=== PATIENT | female | born 1980 | race Caucasian/White ===

== ENCOUNTER 2018-07-17 15:59 | Inpatient (IN) | payer MEDICAID ==
[~2018-07-17] VITALS: Ht 154.9 cm; Wt 61.3 kg
[2018-07-17] MEDS ORDERED: FERR256T PO (16:32)
[2018-07-17] MEDS ORDERED: PNV1TABL12 PO (16:32)
[2018-07-17] MEDS ORDERED: CALC600T5 PO (16:32)
[2018-07-17 16:33] VITALS: Ht 154.9 cm; Wt 61.3 kg
[2018-07-17] MEDS ORDERED: LACTATED RINGER'S 1,000 ML IV SCH (17:30)
[2018-07-17] MEDS ORDERED: ACETAMINOPHEN 325 MG TAB PO PRN (18:30)
[2018-07-17] MEDS: LACTATED RINGER'S 1,000 ML IV SCH (20:31)
[2018-07-18] MEDS: LACTATED RINGER'S 1,000 ML IV SCH ×2 (03:27→10:22)
[2018-07-18] MEDS ORDERED: PRENATAL VITAMIN PO SCH (09:00)
[2018-07-18] MEDS ORDERED: FERROUS SULFATE (EC) 325 MG TAB PO SCH (09:00)
--- NOTE | 2018-07-18 17:43 | PREOPHP ---
DATE OF ADMISSION: 07/17/2018 HISTORY OF PRESENT ILLNESS: This is a 37-year-old lady, 4, para 3 with 3 C-sections, EDC , at 35 and 6/7 weeks , admitted for extended observation. The patient was at Dr. Tasneem turner's office for nonstress test and the baby was not reactive, so Dr. Chirinos advised the patient to hav e extended observation. The patient feels the baby moving and [facility] and the care was uneventful. PAST PERSONAL HISTORY: No history of diabetes, TB, asthma. ALLERGIES: NO ALLERGIES. SOCIAL HISTORY: The patient does not smoke. She does not drink. MEDICATIONS: She does not take any drugs except her: 1. Iron. 2. Vitamins. GYNECOLOGIC HISTORY: She had menarche at the age of 13, every 28 days interval, 3 to 4 days duration and moderate in amount. FAMILY HISTORY: Noncontributory. OBSTETRIC HISTORY: She is 4, para 3. First delivery was in 2003, second in 2010, third in , all by C-sections. REVIEW OF SYSTEMS: CARDIOVASCULAR: No chest pains. RESPIRATORY: No cough. GASTROINTESTINAL: No diarrhea, no vomiting. GENITOURINARY: No dysuria. PHYSICAL EXAMINATION: GENERAL: Reveals a conscious, coherent lady and in no acute distress. VITAL SIGNS: Blood pressure 120/80, pulse rate 80 per minute, respirations 16 per minute. BREASTS, HEART AND LUNGS: Within normal limits. ABDOMEN: Soft. Fundic height is 35 cm. heart tones 140 per minute. PELVIC: Revealed the cervix to be closed. EXTREMITIES: No pedal edema. ADMITTING DIAGNOSES: A 35 and 6/7 weeks' intrauterine , rule out labor. The patient was no keira to have some contractions. She was given IV hydration and was given on and off oxygen. The osmin ent was planned to be observed overnight. The patient, as mentioned, was ordered to have hydration a nd to observe the baby closely with continuous monitoring. Dictated By: ANDREAS NEUMANN/NTS Conf#: [id number] DID#: [id number]
--- NOTE | 2018-07-18 20:33 | DS ---
DATE OF ADMISSION: 07/17/2018 DATE OF DISCHARGE: 07/18/2018 This is a 37-year-old lady, 4, para 3, EDC of 08/15/2018, at 35 and 6/7 weeks, admitted for e xtended observation and monitoring due to nonreactive test at Dr. Chirinos's office. HISTORY OF PRESENT ILLNESS: See dictated history and physical. PHYSICAL EXAMINATION: See dictated history and physical. ADMITTING DIAGNOSES: 1. A 35 and 6/7 weeks' intrauterine . 2. Rule out dehydration. 3. Rule out labor. HOSPITAL COURSE: The patient was given IV fluids and hydrated well. She was continuously monitored during the night and at one point, she was given oxygen as sometimes baby had poor [id number] vari ability. In the morning 07/18/2018, I reevaluated the patient and the tracing was noted to be reacti ve and that also, she was not having any contractions. I requested Dr. Chirinos to review the tracing a nd she agreed that the patient can be discharged. The patient was counseled. She was instructed. S he was told to continue to take her iron and vitamins at home and keep her appointment in the clinic. FINAL DIAGNOSES: 1. A 36 weeks' intrauterine . 2. False labor. 3. Dehydration. Dictated By: ANDREAS NEUMANN/GUERITA Conf#: [id number] DID#: [id number]
== END 2018-07-18 12:40 | disposition home or self-care (01) | DRG 833 ==
LOC: OBT 15:59 → L-D 16:00 → OBT 18:25 → PP1 20:08
PROVIDERS: ADMIT Obstetrics & Gynecology; ATTEND Obstetrics & Gynecology
DX: O47.03 False labor before 37 completed weeks of gestation, third trimester (principal); O26.893 Other specified pregnancy related conditions, third trimester; E86.0 Dehydration; O09.523 Supervision of elderly multigravida, third trimester; Z3A.35 35 weeks gestation of pregnancy
CPT/HCPCS: 36415; 76815; 76818; 80053; 81001; 85025; 87086; 96360; G0463; J7120

== ENCOUNTER 2018-08-04 10:14 | Inpatient (IN) | payer MEDICAID ==
[~2018-08-04] VITALS: Ht 157.5 cm; Wt 62.5 kg
[~2018-08-04 10:14] MED LIST: CALC600T5 PO; FERR256T PO; PNV1TABL12 PO
[2018-08-04 10:19] VITALS: Ht 157.5 cm; Wt 62.5 kg
--- NOTE | 2018-08-04 10:27 | TRIAGE ---
OB Triage Datetime Report Generated by CPN: 08/04/2018 10:27 Datetime: 07/28/2018 13:12 Time of Arrival: 08/04/2018 10:08 EGA: 38.3 Arrived By: Ambulatory Arrived From: Home Chief Complaint: UC'S Movement: Present Contractions: Regular Rupture of Membranes: Denies Vaginal Bleeding: None Vaginal Discharge: Denies Recent Sexual Intercouse: Denies Abdominal Trauma: Not Applicable Patient Complaints: Contractions; Cramping; Back Pain Time Provider Notified: 08/04/2018 10:20 Datetime: 07/18/2018 12:17 Labor Evaluation Frequency: 0 Monitor Mode: External Resting Tone Marston: Relaxed Heart Rate FHR Baseline Rate: 145 Monitor Mode: External US FHR Baseline Changes: No Baseline Change Variability: Moderate 6-25 bpm Accelerations: 15X15 Decelerations: None Category: Category I Datetime: 07/18/2018 11:15 Labor Evaluation Frequency: occasional, no pattern Monitor Mode: External Quality: Mild Resting Tone Marston: Relaxed Contraction Comments: pt denies feeling contractions Heart Rate FHR Baseline Rate: 130 Monitor Mode: External US FHR Baseline Changes: No Baseline Change Variability: Moderate 6-25 bpm Accelerations: 15X15 Decelerations: None Category: Category I Datetime: 07/18/2018 10:02 Labor Evaluation Frequency: occasional Monitor Mode: External Resting Tone Marston: Relaxed Contraction Comments: pt does not feel any contractions Heart Rate FHR Baseline Rate: 145 FHR Baseline Changes: No Baseline Change Variability: Moderate 6-25 bpm Accelerations: 15X15 Decelerations: None Category: Category I Datetime: 07/18/2018 09:19 Pattern: Normal: <= 5 Contractions in 10 Minutes Heart Rate FHR Baseline Rate: 135 Monitor Mode: External US FHR Baseline Changes: No Baseline Change Variability: Moderate 6-25 bpm Accelerations: 15X15 Decelerations: None Category: Category I Datetime: 07/18/2018 07:34 Labor Evaluation Frequency: pccasional Monitor Mode: External Resting Tone Marston: Relaxed Heart Rate FHR Baseline Rate: 150 Monitor Mode: External US FHR Baseline Changes: No Baseline Change Variability: Moderate 6-25 bpm Accelerations: 15X15 Decelerations: None Category: Category I Datetime: 07/18/2018 07:32 Comments: fm strip reactive withpt sitting in high fowlers and without oxygen Datetime: 07/18/2018 07:00 Stage of : Antepartum Labor Evaluation Frequency: x2 Monitor Mode: External Duration (sec)2399: 60-90 Resting Tone Marston: Relaxed Heart Rate FHR Baseline Rate: 140 Monitor Mode: External US Variability: Moderate 6-25 bpm Accelerations: None Decelerations: None Category: Category I Comments: With some periods of minimal variability. Pain Assessment Pain Presence: None/Denies Pain Type: N/A Datetime: 07/18/2018 06:00 Labor Evaluation Frequency: X5 Monitor Mode: External Duration (sec)2399: 50-110 Quality: Mild Resting Tone Marston: Relaxed Heart Rate FHR Baseline Rate: 140 Monitor Mode: External US Variability: Moderate 6-25 bpm Accelerations: None Decelerations: None Category: Category I Pain Assessment Pain Presence: None/Denies Pain Type: N/A Vaginal Exam Membrane Status: Intact Datetime: 07/18/2018 05:28 Stage of : Antepartum Datetime: 07/18/2018 05:00 Labor Evaluation Frequency: x4 Monitor Mode: External Duration (sec)2399: 40-150 Quality: Mild Resting Tone Marston: Relaxed Heart Rate FHR Baseline Rate: 140 Monitor Mode: External US Variability: Minimal - Undetectable to <=5 bpm Accelerations: 15X15 Decelerations: None Category: Category II Pain Assessment Pain Presence: None/Denies Pain Type: N/A Pain Assessment Comments: pt denies feeling uc's at ths time Datetime: 07/18/2018 04:59 Stage of : Antepartum Pain Assessment Pain Presence: None/Denies Pain Type: N/A Pain Assessment Comments: PT DENIES ANY NEEDS AT THIS TIME Datetime: 07/18/2018 04:00 Labor Evaluation Frequency: X4 Monitor Mode: External Duration (sec)2399: 80-140 Quality: Mild Resting Tone Marston: Relaxed Heart Rate FHR Baseline Rate: 145 Monitor Mode: External US Variability: Minimal - Undetectable to <=5 bpm Accelerations: 15X15 Decelerations: None Category: Category I Pain Assessment Pain Presence: None/Denies Pain Type: N/A Pain Assessment Comments: PT DENIES [place] NEEDS AT THIS TIME Datetime: 07/18/2018 03:27 Stage of : Antepartum Datetime: 07/18/2018 03:00 Labor Evaluation Frequency: X1 Monitor Mode: External Duration (sec)2399: 80 Quality: Mild Resting Tone Marston: Relaxed Heart Rate FHR Baseline Rate: 150 Monitor Mode: External US Variability: Minimal - Undetectable to <=5 bpm Accelerations: 15X15 Decelerations: None Category: Category II Comments: WITH SOME PERIODS OF MODERATE VARIABILITY Pain Assessment Pain Presence: None/Denies Pain Type: N/A Pain Assessment Comments: PT SLEEPING WITH EVEN UNLABORED BREATHING Datetime: 07/18/2018 02:00 Stage of : Antepartum Labor Evaluation Frequency: X2 Monitor Mode: External Duration (sec)2399: 60-90 Pattern: Normal: <= 5 Contractions in 10 Minutes Heart Rate FHR Baseline Rate: 145 Monitor Mode: External US Variability: Minimal - Undetectable to <=5 bpm Accelerations: 15X15 Decelerations: None Category: Category II Datetime: 07/18/2018 01:00 Stage of : Antepartum Labor Evaluation Frequency: x2 Monitor Mode: External Duration (sec)2399: 50-90 Pattern: Normal: <= 5 Contractions in 10 Minutes Heart Rate FHR Baseline Rate: 150 Monitor Mode: External US Variability: Moderate 6-25 bpm Accelerations: 15X15 Decelerations: None Category: Category I Datetime: 07/18/2018 00:00 Stage of : Antepartum Temperature Route: Oral Labor Evaluation Frequency: X3 Monitor Mode: External Duration (sec)2399: 70-100 Quality: Mild Resting Tone Marston: Relaxed Heart Rate FHR Baseline Rate: 145 Monitor Mode: External US Variability: Minimal - Undetectable to <=5 bpm Accelerations: 15X15 Decelerations: None Category: Category II Pain Assessment Pain Presence: None/Denies Pain Type: N/A Pain Assessment Comments: PT DENIES ANY NEEDS AT THIS TIME. Datetime: 07/17/2018 23:00 Labor Evaluation Frequency: X8 Monitor Mode: External Duration (sec)2399: 60-90 Quality: Mild Resting Tone Marston: Relaxed Contraction Comments: PT STATES SHE FEELS AN OCCASSIONAL UC. Heart Rate FHR Baseline Rate: 150 Monitor Mode: External US Variability: Moderate 6-25 bpm Accelerations: 15X15 Decelerations: Variable Category: Category II Pain Assessment Pain Presence: None/Denies Pain Type: N/A Datetime: 07/17/2018 22:00 Labor Evaluation Frequency: X5 Monitor Mode: External Duration (sec)2399: 90-110 Quality: Mild Resting Tone Marston: Relaxed Heart Rate FHR Baseline Rate: 150 Monitor Mode: External US Variability: Minimal - Undetectable to <=5 bpm Accelerations: 15X15 Decelerations: None Category: Category II Pain Assessment Pain Presence: None/Denies Pain Type: N/A Datetime: 07/17/2018 21:00 Labor Evaluation Frequency: X2 Monitor Mode: External Duration (sec)2399: 70-90 Quality: Mild Resting Tone Marston: Relaxed Heart Rate FHR Baseline Rate: 150 Monitor Mode: External US Variability: Minimal - Undetectable to <=5 bpm Accelerations: 15X15 Decelerations: None Category: Category II Datetime: 07/17/2018 20:31 Stage of : Antepartum Datetime: 07/17/2018 20:19 Stage of : Antepartum Assessment Type: Ongoing Assessment Maternal Assessment Level of Consciousness: Fully Conscious DTR's/Clonus: DTRs 2+; No Clonus Headache: Denies Blurred Vision: No Respiratory Effort: Unlabored; Regular Rhythm; Equal Expansion Breath Sounds, Left: Clear and Equal Breath Sounds, Right: Clear and Equal Nausea/Vomiting: Denies RUQ Epigastric Pain: Denies Lower Extremities Edema: None Degree: None Upper Extremities Edema: None Degree: None Facial Edema: None Temperature Route: Oral Fall Risk Assessment History of Falling: (0) No Secondary Diagnosis: (0) No Ambulatory Aid: (0) Bedrest/Nurse Assist IV Therapy: (0) No Gait: (0) Normal/Bedrest/Immobile Mental Status: (0) Oriented to Own Ability Fall Score: 0 Fall Risk Score Definition: No Risk: No action required Datetime: 07/17/2018 20:00 Stage of : Antepartum Labor Evaluation Frequency: 6 Monitor Mode: External Duration (sec)2399: 70-100 Quality: Mild Resting Tone Marston: Relaxed Heart Rate FHR Baseline Rate: 150 Monitor Mode: External US Variability: Minimal - Undetectable to <=5 bpm Accelerations: 15X15 Decelerations: None Category: Category II Pain Assessment Pain Presence: None/Denies Pain Type: N/A Datetime: 07/17/2018 19:00 Labor Evaluation Frequency: 5-9 Monitor Mode: External Duration (sec)2399: 60-80 Quality: Mild Pattern: Normal: <= 5 Contractions in 10 Minutes Resting Tone Marston: Relaxed Heart Rate FHR Baseline Rate: 150 Monitor Mode: External US FHR Baseline Changes: No Baseline Change Variability: Minimal - Undetectable to <=5 bpm Accelerations: 15X15 Decelerations: None Category: Category II Pain Assessment Pain Presence: None/Denies Datetime: 07/17/2018 18:37 Labor Evaluation Frequency: 3-7 Monitor Mode: External Duration (sec)2399: 50-90 Quality: Mild Pattern: Normal: <= 5 Contractions in 10 Minutes Resting Tone Marston: Relaxed Heart Rate FHR Baseline Rate: 150 Monitor Mode: External US FHR Baseline Changes: No Baseline Change Variability: Minimal - Undetectable to <=5 bpm Accelerations: 15X15 Decelerations: None Category: Category II Pain Assessment Pain Presence: None/Denies Pain Assessment Comments: Pt denies feeling pain or pressure with UC Datetime: 07/17/2018 18:30 Assessment Type: Admission Assessment Vaginal Bleeding: None Maternal Assessment Level of Consciousness: Fully Conscious DTR's/Clonus: DTRs 2+; No Clonus Headache: Denies Blurred Vision: No Respiratory Effort: Unlabored; Regular Rhythm; Equal Expansion Breath Sounds, Left: Clear and Equal Breath Sounds, Right: Clear and Equal Nausea/Vomiting: Denies RUQ Epigastric Pain: Denies Lower Extremities Edema: None Degree: None Upper Extremities Edema: None Degree: None Facial Edema: None Fall Risk Assessment History of Falling: (0) No Secondary Diagnosis: (0) No Ambulatory Aid: (0) Bedrest/Nurse Assist IV Therapy: (20) Yes Gait: (0) Normal/Bedrest/Immobile Mental Status: (0) Oriented to Own Ability Fall Score: 20 Fall Risk Score Definition: No Risk: No action required Datetime: 07/17/2018 18:25 Time of Arrival: 07/17/2018 18:25 EGA: 35.6 Arrived By: Ambulatory Arrived From: OB Triage Datetime: 07/17/2018 17:35 Monitor Mode: External Resting Tone Marston: Relaxed Heart Rate FHR Baseline Rate: 145 Monitor Mode: External US FHR Baseline Changes: No Baseline Change Variability: Minimal - Undetectable to <=5 bpm Accelerations: 15X15 Decelerations: None Category: Category II Comments: Periods of moderate and minimal variability Pain Assessment Pain Presence: None/Denies Datetime: 07/17/2018 16:35 Monitor Mode: External Resting Tone Marston: Relaxed Heart Rate FHR Baseline Rate: 155 Monitor Mode: External US FHR Baseline Changes: No Baseline Change Variability: Minimal - Undetectable to <=5 bpm Accelerations: 15X15 Decelerations: None Category: Category II Pain Assessment Pain Presence: None/Denies Datetime: 07/17/2018 16:07 Assessment Type: Triage Maternal Assessment Level of Consciousness: Fully Conscious DTR's/Clonus: DTRs 2+; No Clonus Headache: Denies Blurred Vision: No Respiratory Effort: Unlabored; Regular Rhythm; Equal Expansion Breath Sounds, Left: Clear and Equal Breath Sounds, Right: Clear and Equal Nausea/Vomiting: Denies RUQ Epigastric Pain: Denies Lower Extremities Edema: None Degree: None Upper Extremities Edema: None Degree: None Facial Edema: None Fall Risk Assessment History of Falling: (0) No Secondary Diagnosis: (0) No Ambulatory Aid: (0) Bedrest/Nurse Assist IV Therapy: (0) No Gait: (0) Normal/Bedrest/Immobile Mental Status: (0) Oriented to Own Ability Fall Score: 0 Fall Risk Score Definition: No Risk: No action required Datetime: 07/17/2018 16:04 Stage of : OB Triage Datetime: 07/17/2018 14:16 Time of Arrival: 07/17/2018 15:54 EGA: 35.6 Arrived By: Ambulatory Arrived From: Dr. Garces Chief Complaint: from NST for extended monitoring Movement: Present Contractions: Occasional Rupture of Membranes: Denies Vaginal Bleeding: Normal Show Vaginal Discharge: Denies Recent Sexual Intercouse: Denies Abdominal Trauma: Not Applicable Patient Complaints: None Time Provider Notified: 07/17/2018 17:01 Provider Notified: Chaz Initial Plan: NST, BPP/Tess, EFW, IV hydration Datetime: 07/17/2018 14:15 Movement: Present Contractions: Denies/Absent Rupture of Membranes: Denies Vaginal Discharge: Denies Recent Sexual Intercouse: Denies Abdominal Trauma: Not Applicable
[2018-08-04] MEDS ORDERED: LACTATED RINGER'S 1,000 ML IV SCH ×2 (11:43→15:29)
[2018-08-04] MEDS ORDERED: CARBOPROST 250 MCG INJ IM PRN ×2 (12:00→15:30)
[2018-08-04] MEDS ORDERED: METHYLERGONOVINE 0.2 MG INJ IM PRN ×2 (12:00→15:30)
[2018-08-04] MEDS ORDERED: MISOPROSTOL 200 MCG TAB PR PRN ×2 (12:00→15:30)
[2018-08-04] MEDS ORDERED: OXYTOCIN 30 UNITS/LR 500 ML IV PRN ×2 (12:00→15:30)
[2018-08-04] MEDS ORDERED: METOCLOPRAMIDE 10 MG INJ ONE (14:06)
[2018-08-04] MEDS ORDERED: CEFAZOLIN 2 GM/50 ML (PMX) 50 ML IVPB ONE (14:06)
[2018-08-04] MEDS ORDERED: CITRIC ACID/NA CITRATE 30 ML CUP ONE (14:07)
[2018-08-04] MEDS ORDERED: FAMOTIDINE 20 MG INJ ONE (14:07)
[2018-08-04] MEDS ORDERED: LACTATED RINGER'S 1,000 ML IV ONE (14:18)
--- NOTE | 2018-08-04 14:18 | PREOPHP ---
DATE OF ADMISSION: 08/04/2018 HISTORY OF PRESENT ILLNESS: This is a 37-year-old lady, 4, para 3. Her EDC is 08/15/2018 at 38 and 3/7 weeks, admitted to labor and delivery area. In labor, she started to have contractions a bout a few hours prior to admission and got worse up to the time of admission. She had 3 previous C- sections and this is for repeat . PAST PERSONAL HISTORY: No history of diabetes, TB, asthma. ALLERGIES: NO ALLERGIES. SOCIAL HISTORY: The patient does not smoke. She does not drink. MEDICATIONS: She does not take any drugs except her: 1. Iron. 2. Vitamins. GYNECOLOGICAL HISTORY: She had menarche at the age of 13, every 28 days interval, 3 to 4 days durati on and moderate in amount. FAMILY HISTORY: There is family history of diabetes. OBSTETRICAL HISTORY: She is 4, para 3. Her first delivery was in 2003, second 2010, third ; all by . REVIEW OF SYSTEMS: CARDIOVASCULAR: No chest pains. RESPIRATORY: No cough. GASTROINTESTINAL: No diarrhea, no vomiting. GENITOURINARY: No dysuria. PHYSICAL EXAMINATION: GENERAL: Reveals a conscious, coherent lady and in no acute distress. VITAL SIGNS: Her blood pressure is 120/80, pulse rate 80 per minute, respirations 16 per minute. BREASTS, HEART AND LUNGS: Within normal limits. ABDOMEN: Soft. Fundic height 36 cm. heart tones 140 per minute. PELVIC: Done by me revealed the cervix to be 4 to 5 cm dilated, 100% effaced, station floating in ce phalic presentation with the bag of water intact. EXTREMITIES: No pedal edema. ADMITTING DIAGNOSES: 1. A 38 and 3/7 weeks intrauterine in labor. 2. Three previous sections. The patient was planned to have a repeat . The procedures were explained to the patient and she understood everything totally. The risks, benefits and alternatives were discussed with her as well. Dictated By: ANDREAS NEUMANN/GUERITA Conf#: [id number] DID#: [id number]
--- NOTE | 2018-08-04 14:18 | PREAC ---
Date/Time of Note Date/Time of Note DATE: 08/04/18 TIME: 14:16 Anesthesia Eval and Record Evaluation Time Pre-Procedure Interview DATE: 08/04/18 TIME: 14:16 Age 37 Sex female NPO: 8 hrs Preoperative diagnosis intrauterine Planned procedure repeat c section Past Medical History Past Medical History: Includes : : (4), Para: (3), Gestational age: (38.3) Surgery & Anesthesia Issues No known issue Meds Anticoagulation: No Beta Livia within 24 hr: No Reason Beta Livia not given: Pt. not on B-Livia Reported Medications Calcium Carbonate (CALCIUM) 600 Mg Tablet, 600 MG PO, TAB 07/17/18 Ferrous Gluconate (Iron) 256 Mg Tablet, 256 MG PO, TAB 07/17/18 Pnv Cmb#21/Iron/Folic Acid ( Complete Caplet) 1 Each Tablet, 1 EACH PO, TAB 07/17/18 Current Medications Lactated Ringer's 1,000 ml @ 125 mls/hr Q8H IV Last administered on 08/04/18at 12:03; Admin Dose 125 MLS/HR; Start 08/04/18 at 11:43 Oxytocin/Lactated Ringer's 500 ml @ 0 mls/hr ONCE PRN IV .VAGINAL BLEEDING; Start 08/04/18 at 12:00 Methylergonovine Maleate (Methergine) 0.2 mg ONCE PRN IM .VAGINAL BLEEDING; Start 08/04/18 at 12:00 Carboprost Tromethamine (Hemabate) 250 mcg ONCE PRN IM .VAGINAL BLEEDING; Start 08/04/18 at 12:00 Misoprostol (Cytotec) 1,000 mcg ONCE PRN CO .VAGINAL BLEEDING; Start 08/04/18 at 12:00 Meds reviewed: Yes Allergies Coded Allergies: No Known Allergy (Unverified , 07/17/18) Allergies Reviewed: Yes Labs/Studies Labs Reviewed: Reviewed by anesthesiologist Result Diagram: 08/04/18 1105 Laboratory Tests 08/04/18 11:05 Blood Bank Test 08/04/18 11:05 Antibody Screen NEGATIVE Blood Type A POSITIVE Rh Immune Globulin Candidate NO test: N/A Pre-procedure Exam Airway: Adequate mouth opening, Adequate thyromental dist Mallampati: Mallampati II Teeth: Normal Lung: Normal Heart: Normal ASA Physical Status ASA physical status: 2 Emergency: None Planned Anesthetic Neuraxial: Spinal Planned Pain Management Sub-arachniod narcotics, Parenteral pain med Pre-operative Attestations Prior to commencing anesthesia and surgery, the patient was re-evaluated, there was verification of: *The patient's identity *The results of appropriate recent lab work and preoperative vital signs *The above evaluation not changing prior to induction *Anesthetic plan, risk benefits, alternative and complications discussed with patient/family; questions answered; patient/family understands, accepts and wishes to proceed. PRINCESS CARSON MD August 04, 2018 14:18
[2018-08-04] MEDS ORDERED: morphine SULFATE/PF (10 MG/10 ML) INJ ONE (14:23)
[2018-08-04] MEDS ORDERED: METOCLOPRAMIDE 10 MG INJ IV ONE (14:30)
[2018-08-04] MEDS ORDERED: FAMOTIDINE 20 MG INJ IV ONE (14:30)
[2018-08-04] MEDS ORDERED: CITRIC ACID/NA CITRATE 30 ML CUP PO ONE (14:30)
[2018-08-04] MEDS ORDERED: PHENYLephrine (100 MCG/ML) 10ML SYG ONE (14:40)
[2018-08-04] MEDS ORDERED: ONDANSETRON 4 MG INJ ONE (14:43)
[2018-08-04] MEDS ORDERED: MIDAZOLAM 1 MG/ML 2 ML INJ ONE ×2 (14:44→14:57)
[2018-08-04] MEDS ORDERED: FENTAnyl 50 MCG/ML VIAL ONE (14:56)
[2018-08-04] MEDS ORDERED: OXYTOCIN 30 UNITS/LR 500 ML IV ONE (15:11)
[2018-08-04] MEDS ORDERED: OXYTOCIN 30 UNITS/LR 500 ML IV SCH ×2 (15:29→16:30)
--- NOTE | 2018-08-04 15:29 | OPPN ---
Date/Time of Note Date/Time of Note DATE: 08/04/18 TIME: 15:28 Operative Report Planned Procedure Procedure date August 04, 2018 Procedure(s) REPEAT CSECTION Performed by see signature line Computer Numeric Control Setter: VERNA MORALES M.D. 2nd Computer Numeric Control Setter none Pre-procedure diagnosis 38 WEEKSIUP IN LABOR WITH PREVIOUS CSECTION [id number] Anesthesia Type: [id number] spinal Post-Procedure Post-procedure diagnosis 38 WEEKS IUP IN LABOR PREVIOUS CSECTION Findings Live Baby [], Apgars [] and [], weight [], position [], [] presentation []cord. Estimated Blood Loss: 500 - 600 mls Specimen(s) none Grafts/Implant(s) PLACENTA Complication(s) none ANDREAS TORRES MD August 04, 2018 15:29
[2018-08-04] MEDS ORDERED: METHYLERGONOVINE 0.2 MG TAB PO PRN (15:30)
[2018-08-04] MEDS ORDERED: HYDROCODONE/APAP (5/325) TAB PO PRN (15:30)
[2018-08-04] MEDS ORDERED: LANOLIN HPA 1 PKT TOP PRN (15:30)
--- NOTE | 2018-08-04 15:54 | PAC ---
Date/Time of Note Date/Time of Note DATE: 08/04/18 TIME: 15:53 Post-Anesthesia Notes Post-Anesthesia Note Activity: WNL Respiratory function: WNL Cardiovascular function: WNL Mental status: Baseline Pain reasonably controlled: Yes Hydration appropriate: Yes Nausea/Vomiting absent: Yes Comments BP: 105/64 HR: 90 RR: 16 T: 97.9 SaO2: 100% PRINCESS CARSON MD August 04, 2018 15:54
[2018-08-04] MEDS ORDERED: ONDANSETRON 4 MG INJ IV PRN (16:00)
[2018-08-04] MEDS ORDERED: ZOLPIDEM 5 MG TAB PO PRN (16:00)
[2018-08-04] MEDS ORDERED: NALOXONE (0.4 MG/ML) INJ IV PRN (16:00)
[2018-08-04] MEDS ORDERED: HYDROmorphONE 0.5 MG/0.5 ML SYG IV PRN ×2 (16:00)
[2018-08-04] MEDS ORDERED: DIPHENHYDRAMINE 50 MG INJ IV PRN (16:00)
[2018-08-04] MEDS ORDERED: CEFAZOLIN 2 GM/50 ML (PMX) 50 ML IVPB SCH (16:30)
[2018-08-04] MEDS: KETOROLAC 30 MG INJ IV PRN (17:21)
[2018-08-04 17:50] VITALS: BP 108/52; PULSE 63; RESP 18
[2018-08-04 19:30] VITALS: BP 103/59; PULSE 61; RESP 19
[2018-08-04] MEDS: SENNA/DOCUSATE NA (8.6MG/50MG) TAB PO SCH (21:31)
[2018-08-04] MEDS: LACTATED RINGER'S 1,000 ML IV SCH (21:47)
[2018-08-05 04:06] VITALS: BP 99/58; PULSE 84; RESP 19
[2018-08-05] MEDS: LACTATED RINGER'S 1,000 ML IV SCH (04:48)
[2018-08-05 07:30] VITALS: BP 92/57; PULSE 70; RESP 18
[2018-08-05] MEDS: SENNA/DOCUSATE NA (8.6MG/50MG) TAB PO SCH ×2 (08:21→21:00)
[2018-08-05] MEDS: KETOROLAC 30 MG INJ IV PRN (08:22)
[2018-08-05 12:05] VITALS: BP 100/53; PULSE 67; RESP 18
--- NOTE | 2018-08-05 15:58 | PN ---
Date/Time of Note Date/Time of Note DATE: 08/05/18 TIME: 15:57 Assessment/Plan VTE Prophylaxis Risk score (from Ns)>0 risk: 3 SCD applied (from Ns): Yes Pharmacological prophylaxis: NA/contraindicated Pharm contraindication: low risk/ambulating Lines/Catheters IV Catheter Type (from Nrs): Peripheral IV Assessment/Plan Assessment/Plan POSTCSECTION DAY 1 ORDERED ADVANCE DIET TOLERATED CBC ON 3RD POSTOP DAY Result Diagram: 08/05/18 0801 08/05/18 0801 Results 24hrs Laboratory Tests Test 08/05/18 08:01 White Blood Count 8.4 Red Blood Count 3.24 L Hemoglobin 10.2 L Hematocrit 30.5 L Mean Corpuscular Volume 94.1 Mean Corpuscular Hemoglobin 31.5 Mean Corpuscular Hemoglobin Concent 33.4 Red Cell Distribution Width 13.4 Platelet Count 168 Mean Platelet Volume 10.9 H Immature Granulocytes % 0.400 Neutrophils % 75.7 Lymphocytes % 16.4 Monocytes % 7.2 Eosinophils % 0.1 Basophils % 0.2 Nucleated Red Blood Cells % 0.0 Immature Granulocytes # 0.030 Neutrophils # 6.4 Lymphocytes # 1.4 Monocytes # 0.6 Eosinophils # 0.0 Basophils # 0.0 Nucleated Red Blood Cells # 0.0 Sodium Level 138 Potassium Level 3.8 Chloride Level 109 Carbon Dioxide Level 23 Anion Gap 6 Blood Urea Nitrogen 6 L Creatinine 0.41 L Est Glomerular Filtrat Rate mL/min > 60 Glucose Level 62 L Calcium Level 8.6 Subjective 24 Hr Interval Summary Free Text/Dictation POST CSECTION DAY 1 COMPLAIN OF INCISIONAL PAINS GOOD URINE OUTPUT PASSING GAS PER RECTUM NO BOWEL MOVEMENT YET Exam/Review of Systems Exam Vitals Vital Signs Date Temp Pulse Resp B/P (MAP) Pulse Ox O2 O2 Flow FiO2 Time Delivery Rate 08/05/18 98.3 67 18 100/53 98 Room Air 12:05 (69) Intake and Output 08/04/18 08/04/18 08/05/18 1515:00 23:00 07:00 IntakeIntake Total 977 ml 1200 ml OutputOutput Total 1614 ml 1100 ml BalanceBalance -637 ml 100 ml Exam VITAL SIGNS STABLE: YES AFEBRILE: YES BREAST NOT ENGORGED, NON-TENDER, NO APPRECIABLE MASS: YES LUNGS CLEAR, NO RALES, WHEEZES, RHONCHI: YES SINUS RHYTHM WITHOUT MURMUR: YES ABDOMEN: NON-TENDER FUNDUS: BELOW UMBILICUS BOWEL SOUNDS: PRESENT UTERUS: FIRM INCISION (CLEAN, DRY, AND INTACT): YES LOCHIA: LIGHT DEEP TENDON REFLEXES: 0 EXTREMITIES: NO CALF TENDERNESS EDEMA SCALE: NONE Results Results 24hrs Laboratory Tests Test 08/05/18 08:01 White Blood Count 8.4 Red Blood Count 3.24 L Hemoglobin 10.2 L Hematocrit 30.5 L Mean Corpuscular Volume 94.1 Mean Corpuscular Hemoglobin 31.5 Mean Corpuscular Hemoglobin Concent 33.4 Red Cell Distribution Width 13.4 Platelet Count 168 Mean Platelet Volume 10.9 H Immature Granulocytes % 0.400 Neutrophils % 75.7 Lymphocytes % 16.4 Monocytes % 7.2 Eosinophils % 0.1 Basophils % 0.2 Nucleated Red Blood Cells % 0.0 Immature Granulocytes # 0.030 Neutrophils # 6.4 Lymphocytes # 1.4 Monocytes # 0.6 Eosinophils # 0.0 Basophils # 0.0 Nucleated Red Blood Cells # 0.0 Sodium Level 138 Potassium Level 3.8 Chloride Level 109 Carbon Dioxide Level 23 Anion Gap 6 Blood Urea Nitrogen 6 L Creatinine 0.41 L Est Glomerular Filtrat Rate mL/min > 60 Glucose Level 62 L Calcium Level 8.6 Medications Medication Current Medications Oxytocin/Lactated Ringer's 500 ml @ 0 mls/hr ONCE PRN IV .VAGINAL BLEEDING; Start 08/04/18 at 12:00 Methylergonovine Maleate (Methergine) 0.2 mg ONCE PRN IM .VAGINAL BLEEDING; Start 08/04/18 at 12:00 Carboprost Tromethamine (Hemabate) 250 mcg ONCE PRN IM .VAGINAL BLEEDING; Start 08/04/18 at 12:00 Misoprostol (Cytotec) 1,000 mcg ONCE PRN AR .VAGINAL BLEEDING; Start 08/04/18 at 12:00 Methylergonovine Maleate (Methergine) 0.2 mg Q6H PRN PO .VAGINAL BLEEDING; Start 08/04/18 at 15:30 Acetaminophen/ Hydrocodone Bitart ([place] (5/325)) 1 tab Q4H PRN PO MODERATE PAIN LEVEL 4-6; Start 08/04/18 at 15:30 Acetaminophen/ Hydrocodone Bitart ([place] (5/325)) 2 tab Q4H PRN PO SEVERE PAIN LEVEL 7-10; Start 08/04/18 at 15:30 Ibuprofen (Motrin) 800 mg Q8 PRN PO MILD PAIN LEVEL 1-3; Start 08/04/18 at 15:30 Simethicone (Mylicon) 160 mg Q8H PRN PO .GAS; Start 08/04/18 at 15:30 Senna/Docusate Sodium (Senokot-S) 1 tab BID PO Last administered on 08/05/18at 08:21; Admin Dose 1 TAB; Start 08/04/18 at 21:00 Lanolin (Lanolin Hpa) 1 applic BEDSIDE MEDICATION PRN TOP .NIPPLES; Start 08/04/18 at 15:30 Diphtheria/ Tetanus/Acell Pertussis (Adacel) 0.5 ml ONCE ONCE IM* ; Start 08/07/18 at 09:00; Stop 08/07/18 at 09:01 Measles/Mumps/ Rubella Vaccine Live (Mmr Ii Vaccine) 0.5 ml ONCE ONCE SC* ; Start 08/07/18 at 09:00; Stop 08/07/18 at 09:01 Oxytocin/Lactated Ringer's 500 ml @ 0 mls/hr ONCE PRN IV .VAGINAL BLEEDING; Start 08/04/18 at 15:30 Methylergonovine Maleate (Methergine) 0.2 mg ONCE PRN IM .VAGINAL BLEEDING; Start 08/04/18 at 15:30 Carboprost Tromethamine (Hemabate) 250 mcg ONCE PRN IM .VAGINAL BLEEDING; Start 08/04/18 at 15:30 Misoprostol (Cytotec) 1,000 mcg ONCE PRN AR .VAGINAL BLEEDING; Start 08/04/18 at 15:30 Naloxone HCl (Narcan) 0.1 mg Q2M PRN IV .RESP RATE; Start 08/04/18 at 16:00; Stop 08/05/18 at 15:59 Diphenhydramine HCl (Benadryl) 25 mg Q6H PRN IV .ITCHING; Start 08/04/18 at 16:00; Stop 08/05/18 at 15:59 Ondansetron HCl (Zofran Inj) 4 mg Q6H PRN IV .NAUSEA/VOMITING; Start 08/04/18 at 16:00; Stop 08/05/18 at 15:59 Zolpidem Tartrate (Ambien) 5 mg HS MAY REPEAT X 1 PRN PO .INSOMNIA; Start 08/04/18 at 16:00; Stop 08/05/18 at 15:59 Cefazolin Sodium/ Dextrose 50 ml @ 100 mls/hr ONCE IVPB ; Start 08/04/18 at 16:30 Oxytocin/Lactated Ringer's 500 ml @ 125 mls/hr POST IV Last administered on 08/04/18at 17:23; Admin Dose 125 MLS/HR; Start 08/04/18 at 16:30 ANDREAS TORRES MD August 05, 2018 15:58
[2018-08-05 16:05] VITALS: BP 113/59; PULSE 68; RESP 18
[2018-08-05] MEDS: IBUPROFEN 800 MG TAB PO PRN (18:59)
[2018-08-05 19:30] VITALS: BP 109/55; PULSE 63; RESP 19
[2018-08-06 04:00] VITALS: BP 107/84; PULSE 65; RESP 19
[2018-08-06] MEDS: IBUPROFEN 800 MG TAB PO PRN (04:43)
--- NOTE | 2018-08-06 06:14 | OPR ---
DATE OF OPERATION: 08/04/2018 PREOPERATIVE DIAGNOSES: A 38 and 3/7 weeks intrauterine in labor with 3 previous , multiparity. The patient desires sterilization. POSTOPERATIVE DIAGNOSES: A 38 and 3/7 weeks intrauterine in labor with 3 previous C-sectio n, multiparity. The patient desires sterilization. SURGEON: Andreas Ware MD. RATE CLERK: Dr. Read. ANESTHESIA: Spinal. ANESTHESIOLOGIST: Dr. Robin. OPERATION PERFORMED: Repeat low transverse section plus bilateral tubal ligation and transe ction. OPERATIVE TECHNIQUE: Under spinal anesthesia, the patient was prepped and draped in the usual fashio n for abdominal surgery. After checking for the effect of the anesthesia, a Pfannenstiel incision, t he previous scar was excised. A 12 cm skin incision was performed. The incision was carried from th e skin up to the fascia. Upon opening the skin up to the fascia, the small blood vessels were noted to be oozing and these were all cauterized. Fascia was opened transversely followed by splitting the muscles vertically and the peritoneum vertically. Upon opening the abdominal cavity, there were no adhesions noted. The lower uterine segment was noted to be very thinned out. An incision was perfor med about 2 inches above the lower uterine segment. The incision was carried from the serosa up to t he endometrium and the lorenzo was carried sideways with the aid of my 2 fingers. My left hand was inse rted in the lower segment of the uterus and the bag of water was ruptured. Clear fluid was noted. B pricila's head was delivered with good fundal pressure, the baby's airway was quickly suctioned with amni otic fluid and then there was 1 loop of tight cord around the baby's neck that needs to be released p rior to the delivery of the rest of the body of the baby. Then baby's cord was clamped after 30 seco nds and the baby was handed to the NICU team. The placenta was delivered manually and complete. The uterus was exteriorized. The uterus was cleansed with wet lap sponge to make sure that no mem branes were left behind. After correct sponge count, the uterus was closed in the usual fashion usin g #1 chromic for the first layer, continuous locking suture was used, followed by #1 chromic for the second layer, imbricating sutures were used. Bleeders were checked and there was no bleeding noted. After checking for any bleeders in which there were none, then the right tube was grasped on the kvng ter where the avascular area was a 1 cm tube, was stick tied at the proximal and distal portions with 2-0 silk, stick tie with 2-0 chromic above the first silk tie and another free tie above the second tie with 2-0 chromic. The right tube was cut and the cut ends were cauterized. The right fimbria wa s identified. Same thing was done on the left side. The left fimbria was identified. There was no bleeding noted. The broad ligament were checked for any hematoma and there was none noted. The uter us was put back to the pelvic cavity. Once again, uterine incision was checked for any bleeders and there were no bleeding noted. After correct sponge count, needle count and instrument count as confi rmed by the rvda master certified rv technician and fruit press operator, the abdomen was closed in the usual fashion using 0 Vicryl for the peritoneum, 0 Vicryl for the muscles. For the fascia, 0 Vicryl. Continuous stitch was used fol lowed by few [id number] sutures. For the subcutaneous tissue, it was closed with 3-0 Vicryl and the skin was closed with 3-0 Vicryl, subcuticular suture was used. The patient tolerated the proced ure well. Estimated blood loss about 600 mL. Vital signs were stable during and after the procedure . She delivered a healthy baby care at 1442 p.m., 08/04/2018, weighing 3430 grams, 7 pounds 9 ounces , 20 inches long, 8 and 9. Dictated By: ANDREAS NEUMANN/GUERITA Conf#: [id number] DID#: [id number]
[2018-08-06 08:00] VITALS: BP 104/71; PULSE 61; RESP 18
[2018-08-06] MEDS: SENNA/DOCUSATE NA (8.6MG/50MG) TAB PO SCH ×2 (09:00→21:30)
[2018-08-06] MEDS: HYDROCODONE/APAP (5/325) TAB PO PRN ×2 (12:20→21:32)
[2018-08-06 16:00] VITALS: BP 100/64; PULSE 82; RESP 16
[2018-08-06 16:10] VITALS: BP 100/64; PULSE 82; RESP 16
--- NOTE | 2018-08-06 17:02 | PN ---
Date/Time of Note Date/Time of Note DATE: 08/06/18 TIME: 17:00 Assessment/Plan VTE Prophylaxis Risk score (from Nsg)>0 risk: 4 SCD applied (from Nsg): No SCD contraindicated: low risk/ambulating Pharmacological prophylaxis: NA/contraindicated Pharm contraindication: low risk/ambulating Lines/Catheters IV Catheter Type (from Nrsg): Peripheral IV Assessment/Plan Assessment/Plan POST CSECTION DAY 2 HOME TOMORROW CBC TOMORROW COUNSELED INSTRUCTED PRESCRIPTION GIVEN FOR PAIN RETURN TO CLINIC IN 2 WEEKS CALL OFFICE IF THERE IS ANY PROBLEM OR CONCERN CONTINUE WITH VITAMINS OD AND FERROUS SULFATE 325MG PO TID DIET ADVISED Result Diagram: 08/05/18 0808/05/18 08 Subjective 24 Hr Interval Summary Free Text/Dictation POST CSECTION DAY 2 LITTLE BOWEL MOVEMENT GOOD URINE OUTPUT FEELS LESS INCISIONAL PAINS Exam/Review of Systems Exam Vitals Vital Signs Date Temp Pulse Resp B/P (MAP) Pulse Ox O2 O2 Flow FiO2 Time Delivery Rate 08/06/18 98.4 82 16 100/64 Room Air 16:00 (76) 08/05/18 99 16:05 Intake and Output 08/05/18 08/05/18 08/06/18 1515:00 23:00 07:00 IntakeIntake Total 880 ml 700 ml OutputOutput Total 1200 ml 2150 ml BalanceBalance -320 ml -1450 ml Exam VITAL SIGNS STABLE: YES AFEBRILE: YES BREAST NOT ENGORGED, NON-TENDER, NO APPRECIABLE MASS: YES LUNGS CLEAR, NO RALES, WHEEZES, RHONCHI: YES SINUS RHYTHM WITHOUT MURMUR: YES ABDOMEN: NON-TENDER FUNDUS: BELOW UMBILICUS BOWEL SOUNDS: PRESENT UTERUS: FIRM INCISION (CLEAN, DRY, AND INTACT): YES LOCHIA: LIGHT DEEP TENDON REFLEXES: 0 EXTREMITIES: NO CALF TENDERNESS EDEMA SCALE: NONE Medications Medication Current Medications Oxytocin/Lactated Ringer's 500 ml @ 0 mls/hr ONCE PRN IV .VAGINAL BLEEDING; Start 08/04/18 at 12:00 Methylergonovine Maleate (Methergine) 0.2 mg ONCE PRN IM .VAGINAL BLEEDING; Start 08/04/18 at 12:00 Carboprost Tromethamine (Hemabate) 250 mcg ONCE PRN IM .VAGINAL BLEEDING; Start 08/04/18 at 12:00 Misoprostol (Cytotec) 1,000 mcg ONCE PRN IN .VAGINAL BLEEDING; Start 08/04/18 at 12:00 Methylergonovine Maleate (Methergine) 0.2 mg Q6H PRN PO .VAGINAL BLEEDING; Start 08/04/18 at 15:30 Acetaminophen/ Hydrocodone Bitart ([place] (5/325)) 1 tab Q4H PRN PO MODERATE PAIN LEVEL 4-6; Start 08/04/18 at 15:30 Acetaminophen/ Hydrocodone Bitart ([place] (5/325)) 2 tab Q4H PRN PO SEVERE PAIN LEVEL 7-10 Last administered on 08/06/18at 12:20; Admin Dose 2 TAB; Start 08/04/18 at 15:30 Ibuprofen (Motrin) 800 mg Q8 PRN PO MILD PAIN LEVEL 1-3 Last administered on 08/06/18at 04:43; Admin Dose 800 MG; Start 08/04/18 at 15:30 Simethicone (Mylicon) 160 mg Q8H PRN PO .GAS; Start 08/04/18 at 15:30 Senna/Docusate Sodium (Senokot-S) 1 tab BID PO Last administered on 08/05/18at 08:21; Admin Dose 1 TAB; Start 08/04/18 at 21:00 Lanolin (Lanolin Hpa) 1 applic BEDSIDE MEDICATION PRN TOP .NIPPLES; Start 08/04/18 at 15:30 Diphtheria/ Tetanus/Acell Pertussis (Adacel) 0.5 ml ONCE ONCE IM* ; Start 08/07/18 at 09:00; Stop 08/07/18 at 09:01 Measles/Mumps/ Rubella Vaccine Live (Mmr Ii Vaccine) 0.5 ml ONCE ONCE SC* ; Start 08/07/18 at 09:00; Stop 08/07/18 at 09:01 Methylergonovine Maleate (Methergine) 0.2 mg ONCE PRN IM .VAGINAL BLEEDING; Start 08/04/18 at 15:30 Carboprost Tromethamine (Hemabate) 250 mcg ONCE PRN IM .VAGINAL BLEEDING; Start 08/04/18 at 15:30 Misoprostol (Cytotec) 1,000 mcg ONCE PRN IN .VAGINAL BLEEDING; Start 08/04/18 at 15:30 ANDREAS TORRES MD August 06, 2018 17:02
[2018-08-06 19:30] VITALS: BP 98/60; PULSE 90; RESP 17
[2018-08-06] MEDS ORDERED: BISACODYL 10 MG SUPP PR ONE (20:00)
[2018-08-06] MEDS ORDERED: MAGNESIUM HYDROXIDE 30ML CUP PO ONE (20:00)
[2018-08-07 04:00] VITALS: BP 95/62
[2018-08-07] MEDS: IBUPROFEN 800 MG TAB PO PRN ×2 (06:15→13:43)
[2018-08-07 08:30] VITALS: BP 96/65; PULSE 65; RESP 18
[2018-08-07] MEDS ORDERED: DIPHTH/TET/ACEL PERTUSS (ADULT) 0.5 ML VIAL IM* ONE (09:00)
[2018-08-07] MEDS ORDERED: MEASLES,MUMPS,RUBELLA VACCINE INJ SC* ONE (09:00)
[2018-08-07] MEDS: SENNA/DOCUSATE NA (8.6MG/50MG) TAB PO SCH (10:00)
--- NOTE | 2018-08-08 17:01 | DELSUM ---
Delivery Summary A-C Datetime Report Generated by CPN: 08/08/2018 17:01 DELIVERY PERSONNEL Search Developer: Dipti Arevalo MATERNAL INFORMATION Delivery Anesthesia: Spinal Medications in Delivery: SEE ANESTHESIA NOTE Delivery QBL (ml): 600 Placenta Cultured: Yes Maternal Complications: None Other Maternal Complications: IN LABOR LABOR SUMMARY EDC: 08/15/2018 00:00 No. Babies in Womb: 1 Attempted: No Labor Anesthesia: None LABOR INFORMATION Reason for Induction: Not Applicable Oxytocin: N/A Group B Beta Strep: Negative Antibiotics # of Doses: 1 Antibiotics Time of Last Dose: 08/04/2018 14:22 Steroids Given: None Reason Steroids Not Administered: Not Applicable MEMBRANES Membranes Rupture Method: Artificial Rupture of Membranes: 08/04/2018 14:42 Length of Rupture (hr): 0.00 Amniotic Fluid Color: Clear Amniotic Fluid Amount: Small Amniotic Fluid Odor: Normal STAGES OF LABOR Stage 3 hr: 0 Stage 3 min: 1 CSECTION DELIVERY Primary Indication: Repeat Elective CSection Urgency: Non Elective CSection Incidence: Repeat Labor: Labor Elective: Nonelective CSection Incision: Lower Uterine Transverse Sterilization Procedure: [place] BABY A INFORMATION Infant Delivery Date/Time: 08/04/2018 14:42 Method of Delivery: Born in Route : No : N/A Forceps: N/A Vacuum Extraction: N/A Shoulder Dystocia : N/A SHOULDER DYSTOCIA BABY A Delivery Date/Time: 08/04/2018 14:42 PRESENTATION/POSITION BABY A Presentation: Cephalic Cephalic Presentation: Vertex Vertex Position: N/A Breech Presentation: N/A PLACENTA INFORMATION BABY A Placenta Delivery Time : 08/04/2018 14:43 Placenta Method of Delivery: Manual Removal Placenta Status: Delivered SCORES BABY A Heart Rate 1 min: >100 bpm Resp Effort 1 min: Good Cry Reflex Irritability 1 min: Cough/Sneeze/Pulls Away Muscle Tone 1 min: Active Motion Color 1 min: Blue/Pale Resuscitation Effort 1 min: Tactile Stimulation SCORE 1 MIN: 8 Heart Rate 5 min: >100 bpm Resp Effort 5 min: Good Cry Reflex Irritability 5 min: Cough/Sneeze/Pulls Away Muscle Tone 5 min: Active Motion Color 5 min: Body Windber, Extremit Blue Resuscitation Effort 5 min: Tactile Stimulation SCORE 5 MIN: 9 INFANT INFORMATION BABY A Gestational Age at Delivery: 38.3 Gestational Status: Early Term- 37- 38.6 Weeks Outcome : Liveborn Condition : Stable Infant Sex: Female IDENTIFICATION/MEDS BABY A ID Band Number: [id number] ID Band Location: Right Leg; Left Arm Sensor Applied: Yes Sensor Number: [id number] Sensor Location : Cord Clamp Vitamin K Given : Not Given Erythromycin Given: Not Given WEIGHT/LENGTH BABY A Infant Birthweight (gm): 3430 Infant Weight (lb): 7 Weight (oz): 9 Infant Length (in): 20.00 Length (cm): 50.80 CORD INFORMATION BABY A No. Cord Vessels: 3 Nuchal Cord : N/A Cord Blood Taken: Yes Suction: Mouth; Nose ASSESSMENT BABY A Complications: None Physical Findings at Delivery: Within Normal Limits Respirations: Appears Normal Lumber Buyer/ALS Called : Yes Care By: RT Transferred To: Remains with Mother
--- NOTE | 2018-08-09 23:05 | PN ---
DATE: 08/07/2018 SUBJECTIVE: The patient feels good. Less incisional pain. Good bowel movement and good urine outpu t. OBJECTIVE VITAL SIGNS: She is afebrile. Vital signs stable. ABDOMEN: Soft. Wound dry and clean. Bowel sounds good. EXTREMITIES: No calf tenderness. ASSESSMENT: Postop day #2. PLAN: Home today. To clinic in 2 weeks. ____ was instructed. She was given prescription for pain. She was told to come back to the clinic in 2 weeks. She was discharged home in good and stable con dition. Dictated By: ANDREAS NEUMANN/GUERITA Conf#: [id number] DID#: [id number]
--- NOTE | 2018-08-10 06:04 | DS ---
DATE OF ADMISSION: 08/04/2018 DATE OF DISCHARGE: 08/07/2018 This is a 37-year-old lady, 4, para 3, EDC 08/15/2018, at 38 and 3/7 weeks, admitted in labor . HISTORY OF PRESENT ILLNESS: See dictated history and physical. ADMITTING DIAGNOSIS: A 36 and 3/7 weeks intrauterine in labor. HOSPITAL COURSE: Three previous C-sections and multiparity patient who desires sterilization. The p rocedures were explained to the patient and she understood everything totally. The risks, benefits a nd alternatives were discussed with her as well. The patient underwent a repeat low transverse laurita vic section plus bilateral tubal ligation and transection. She tolerated the procedure well. She di d have good postoperative course. The diet was advanced from liquid to general diet. She had good b owel movement postoperatively. She has less pain on the third postoperative day. She was discharged home on the third postoperative day on general diet and activity was restricted. She was counseled. She was instructed. She was told to continue to take her iron and vitamins at home. She was given prescription for pain. The hematocrit on discharge was 38.1, hemoglobin 12.3. FINAL DIAGNOSES: 1. 38-3/7 weeks intrauterine in labor. 2. Previous , multiparity. 3. Patient discharged to sterilization. Dictated By: ANDREAS NEUMANN/GUERITA Conf#: [id number] DID#: [id number]
== END 2018-08-07 15:15 | disposition home or self-care (01) | DRG 785 ==
LOC: OBT 10:14 → L-D 10:14 → OBT 10:27 → L-D 10:38 → PP1 17:41
PROVIDERS: ADMIT Obstetrics & Gynecology; ATTEND Obstetrics & Gynecology
PROC: 0UL70ZZ Occlusion of Bilateral Fallopian Tubes, Open Approach (ICD-10-PCS; 2018-08-04)
PROC: 10D00Z1 Extraction of Products of Conception, Low, Open Approach (ICD-10-PCS; principal; 2018-08-04 14:45)
DX: O65.5 Obstructed labor due to abnormality of maternal pelvic organs (principal); O34.211 Maternal care for low transverse scar from previous cesarean delivery; Z3A.38 38 weeks gestation of pregnancy; Z37.0 Single live birth; Z30.2 Encounter for sterilization
CPT/HCPCS: 80048; 85025; 85610; 85730; 86592; 86850; 86900; 86901; 87340; 88302; 90715; G0463; J0690; J1885; J2250; J2274; J2370; J2405; J2590; J2765; J3010; J7120